=== PATIENT | female | born 1960 | race Caucasian/White ===

== ENCOUNTER 2019-07-14 11:27 | Inpatient (IN) ==
[2019-07-10 11:25] LABS: Appearance,Urine CLEAR; Bacteria,Urine 0 /hpf (0); Bilirubin,Urine NEG (NEG); Color,Urine YELLOW; Culture Indicated,Urine NO; Glucose,Urine (UA) NEGATIVE (NEG); Ketones,Urine NEG (NEG); Leukocyte Esterase,Urine NEG /uL (NEG); Mucus,Urine FEW /hpf (0); Nitrate,Urine NEG (NEG); Protein,Urine 30 mg/dL (NEG); Urine Blood 0.03 mg/dL (<0.03); Urine RBC 13 /hpf (0-1); Urine Squamous Epithelial Cell 1 /hpf (0-4); Urine WBC < 1 /hpf (0-4); Urobilinogen,Urine NEG (NEG)
[2019-07-10 12:58] LABS: Basophils # (Auto) 0.1 K/mcL (0.0-0.3); Basophils % (Auto) 0.6 % (0.0-2.0); Eosinophils # (Auto) 0.2 K/mcL (0.0-0.7); Eosinophils % (Auto) 2.2 % (0.0-7.0); Granulocytes % (Auto) 56.9 % (38.0-78.0); Hemoglobin 13.1 g/dL (12.0-15.0); Lymphocytes # (Auto) 3.4 K/mcL (1.5-4.8); Lymphocytes % (Auto) 33.1 % (15.5-49.0); Mean Corpuscular HGB Conc 33.7 g/dL (31.0-36.0); Monocytes # (Auto) 0.7 K/mcL (0.1-0.9); Monocytes % (Auto) 7.2 % (1.0-12.0); Platelet Count 314 K/mcL (140-440); RBC 4.43 M/mcL (4.00-5.20); Red Cell Distribution Width 16.4 % (11.5-14.5); WBC 10.4 K/mcL (4.5-11.0)
[2019-07-10 13:02] LABS: Blood Urea Nitrogen 11 mg/dl (6-20); Calcium 9.5 mg/dl (8.6-10.4); Carbon Dioxide 29 mmol/L (22-30); Chloride 100 mmol/L (96-108); Glomerular Filtration Rate 70; Glucose 121 mg/dL (70-105)
[~2019-07-14 11:27] MED LIST: 0.9 % SODIUM CHLORIDE 9 ML, KETOROLAC 30 MG, ROPIVACAINE HCL/PF 49.5 ML, EPINEPHrine 0.... IJ SCH; ACETAMINOPHEN 500 MG TABLET PO SCH; CELECOXIB 200 MG CAPSULE PO SCH; PREGABALIN 75 MG CAPSULE PO SCH; SCOPOLAMINE 1 PATCH PATCH TOPICAL ONE; ceFAZolin 2 GM in DEXTROSE 5% IN WATER 50 ML IV SCH; oxyCODONE 10 MG TAB.ER.12H PO SCH
[2019-07-14] MEDS ORDERED: SCOPOLAMINE 1 PATCH PATCH TOPICAL PRN (13:00)
[2019-07-14] MEDS ORDERED: IPRATROPIUM/ALBUTEROL 3 ML AMPUL.NEB NEB PRN ×2 (13:00→15:01)
[2019-07-14] MEDS ORDERED: GENTAMICIN SULFATE 800 MG/20 ML VIAL IR ONE (13:45)
[2019-07-14] MEDS ORDERED: ROPIVACAINE HCL/PF 20 ML VIAL IJ ONE (14:10)
[2019-07-14] MEDS ORDERED: ONDANSETRON 4 MG/2 ML VIAL IV ONE (14:10)
[2019-07-14] MEDS ORDERED: GLYCOPYRROLATE 0.2 MG/ML VIAL IV ONE (14:10)
[2019-07-14] MEDS ORDERED: DEXAMETHASONE 10 MG/ML VIAL IV ONE (14:10)
[2019-07-14] MEDS ORDERED: PROPOFOL 200 MG/20 ML VIAL IV ONE (14:10)
[2019-07-14] MEDS ORDERED: TRANEXAMIC ACID 1,000 MG/10 ML VIAL IV ONE ×2 (14:10→15:34)
[2019-07-14] MEDS ORDERED: fentaNYL 100 MCG/2 ML VIAL IV ONE (14:10)
[2019-07-14] MEDS ORDERED: LIDOCAINE HCL/PF 100 MG/5 ML SYRINGE IV ONE (14:10)
[2019-07-14] MEDS ORDERED: MIDAZOLAM 2 MG/2 ML VIAL IV ONE (14:10)
[2019-07-14] MEDS ORDERED: ePHEDrine 50 MG/ML AMPUL IV PRN (15:01)
[2019-07-14] MEDS ORDERED: METOPROLOL TARTRATE 5 MG/5 ML VIAL IV PRN (15:01)
[2019-07-14] MEDS ORDERED: METHOCARBAMOL 1,000 MG/10 ML VIAL IV PRN (15:01)
[2019-07-14] MEDS ORDERED: ONDANSETRON 4 MG/2 ML VIAL IV PRN (15:01)
[2019-07-14] MEDS ORDERED: diphenhydrAMINE 50 MG/ML VIAL IV PRN (15:01)
[2019-07-14] MEDS ORDERED: ATROPINE SULFATE 0.4 MG/ML VIAL IV PRN (15:01)
[2019-07-14] MEDS ORDERED: fentaNYL 100 MCG/2 ML VIAL IV PRN (15:01)
[2019-07-14] MEDS ORDERED: PROMETHAZINE 25 MG/ML VIAL IV PRN (15:01)
[2019-07-14] MEDS ORDERED: FLUMAZENIL 0.1 MG/ML ML IV PRN (15:01)
[2019-07-14] MEDS ORDERED: NALOXONE HCL 0.4 MG/ML VIAL IV PRN (15:01)
[2019-07-14] MEDS ORDERED: LACTATED RINGERS 1,000 ML IV SCH (15:15)
[2019-07-14] MEDS ORDERED: BISACODYL 10 MG SUPP.RECT PR PRN (15:34)
[2019-07-14] MEDS ORDERED: HYDROcodone/APAP 10/325MG TABLET PO PRN (15:34)
[2019-07-14] MEDS ORDERED: FLEETS ADULT ENEMA PR PRN (15:34)
[2019-07-14] MEDS ORDERED: ACETAMINOPHEN 325 MG TABLET PO PRN (15:34)
[2019-07-14] MEDS ORDERED: TEMAZEPAM 15 MG CAPSULE PO PRN (15:34)
[2019-07-14] MEDS ORDERED: POLYETHYLENE GLYCOL 3350 17 GM PACKET PO PRN (15:34)
[2019-07-14] MEDS ORDERED: MAGNESIUM HYDROXIDE 30 ML ORAL.SUSP PO PRN (15:34)
[2019-07-14] MEDS ORDERED: HYDROmorphone 2 MG/ML VIAL IV PRN (15:34)
[2019-07-14] MEDS ORDERED: BENZOCAINE/MENTHOL 1 LOZENGE PO PRN (15:34)
--- NOTE | 2019-07-14 15:34 | Brief Operative Note ---
Date of procedure: 07/14/19 Pre-op diagnosis: Left knee djd severe Post-op diagnosis: same Procedure: Left knee tka Grafts/Implants: Yes Anesthesia: ADE Surgeon: Hayden Delacruz Convict Guard: Armin Mccord Estimated blood loss (cc): 100 Tourniquet Time (Minutes): 52 Specimens Removed/Pathology: none sent Condition: stable Disposition: PACU
--- NOTE | 2019-07-14 15:56 | Operative Note ---
DATE OF OPERATION: 07/14/2019 PREOPERATIVE DIAGNOSIS: A 58-year-old with left knee severe degenerative arthritis with flexion contracture. POSTOPERATIVE DIAGNOSIS: A 58-year-old with left knee severe degenerative arthritis with flexion contracture. PROCEDURE: SURGEON: Hayden Delacruz M.D. PACKING HOUSE LABORER: Armin Mccord PA-C. The PA's assistance was required for the safe and efficient completion of the entire case. This provider's expertise and technical skill were required throughout the case. The PA assisted with preoperative coordination, intraoperative retraction, wound closure, dressing and splint application, as well as postoperative documentation and care coordination. ANESTHESIA: General LMA anesthesia. COMPLICATIONS: None. DESCRIPTION OF PROCEDURE: The patient was brought to the operating room and put to sleep with general LMA anesthesia. Once asleep, the patient had the left knee sterilely prepped and draped. We had a timeout confirming the operative site. Preop antibiotics and tranexamic acid given. Midline incision made, midvastus approach performed. We exposed the joint showing severe arthritis throughout all three compartments with a flexion contracture of 24 degrees. With this, we then adjusted the implant to fit the patient and to correct for anatomy. All spurs were removed. We balanced the knee at 90 degrees, as well as at 15 degrees. We irrigated thoroughly and then removed the tibial cut. We made our femoral cuts and removed the bony fragments. We then removed spurs posteriorly. Because of the contracture, we released posterior cruciate ligament and then tapped into place the tibial baseplate. The femoral component was then placed and drilled. We then trialed the size 9. This was a little too loose. The size 10 was perfect with 1 degree of flexion contracture. We irrigated thoroughly and then prepared the patella, measuring 22 mm in the worn status, cut to 14 mm. We then cemented into place a 33 mm patellar button and then resurfaced. The implants were placed after using pulse lavage and the CarboJet to clean the bone. The penetration of the bone cement was excellent. Excess cement was removed. We placed a 10 mm deep dish poly liner. We irrigated thoroughly and kept the knee at 45 degrees until the cement was dry. We then closed the midvastus approach with #1 Stratafix x2. We closed the skin with Stratafix and adhesive closure. The patient tolerated this well without complication. ALEKSANDR:michelle Job ID: [id number] Doc ID: [id number] Hayden Delacruz MD
[2019-07-14] MEDS: MEPERIDINE 25 MG/ML SYRINGE IV PRN ×2 (16:20→16:27)
--- NOTE | 2019-07-14 16:37 | XRay Report ---
CLINICAL INFORMATION: post op COMPARISON: None. FINDINGS: Total hip prostheses anatomically aligned. No osseous abnormality. Soft tissue swelling as expected. IMPRESSION: Negative Interpreted and Authenticated by: Car Bruno 07/14/19
[2019-07-14] MEDS: 0.45 % SODIUM CHLORIDE 1,000 ML IV SCH (16:52)
[2019-07-14] MEDS: KETOROLAC 15 MG/ML VIAL IV SCH ×2 (17:37→23:21)
[2019-07-14] MEDS ORDERED: SENNOSIDES 1 TABLET PO SCH (21:00)
[2019-07-14] MEDS ORDERED: KETOROLAC TROMETHAMINE 3 ML DROPS OP SCH (21:00)
[2019-07-14] MEDS: cloNIDine HCL 0.1 MG TABLET PO SCH (21:02)
[2019-07-14] MEDS: DOCUSATE SODIUM 100 MG CAPSULE PO SCH (21:02)
[2019-07-14] MEDS: ASPIRIN 325 MG ENTERIC COATED TABLET PO SCH (21:02)
[2019-07-14] MEDS: ceFAZolin 1 GM VIAL IV SCH (21:51)
[2019-07-14] MEDS: 0.9 % SODIUM CHLORIDE 10 ML SYRINGE IV SCH (21:51)
[2019-07-14] MEDS: ONDANSETRON 4 MG/2 ML VIAL IV PRN (23:30)
[2019-07-15] MEDS: 0.45 % SODIUM CHLORIDE 1,000 ML IV SCH (02:54)
[2019-07-15] MEDS: ONDANSETRON 4 MG/2 ML VIAL IV PRN ×2 (03:21→08:06)
[2019-07-15] MEDS: ceFAZolin 1 GM VIAL IV SCH (05:58)
[2019-07-15] MEDS: 0.9 % SODIUM CHLORIDE 10 ML SYRINGE IV SCH (05:59)
[2019-07-15] MEDS: KETOROLAC 15 MG/ML VIAL IV SCH ×2 (05:59→12:19)
[2019-07-15] MEDS ORDERED: PANTOPRAZOLE 40 MG TABLET PO SCH (07:30)
--- NOTE | 2019-07-15 07:31 | Orthopedic Progress Note ---
Subjective Patient information: Note initiated : 07/15/19 at 7:30 am Service Date, if different from initiated Date: [] Patient: Luisana Chahal a 58 y/o F admitted on 07/14/19 for Left Total Knee Arthroplasty Rey. Chief Complaint: [Pt is stable this morning on post operative day 1 without any significant concerns or complaints. Patients vital signs have remained stable. Patients dressing is dry and is grossly intact from a neurov ascular and motor standpoint. Patients 10 point ROS is otherwise negative. ] Objective Vital signs: Vital Signs Temp Pulse Resp BP Pulse Ox 07/15/19 05:40 99 H 224/97 07/15/19 03:29 98.4 F 81 16 208/96 94 07/14/19 23:40 202/90 07/14/19 21:14 78 190/89 97 07/14/19 20:43 80 206/93 97 07/14/19 19:43 70 162/75 94 07/14/19 18:44 80 134/68 96 07/14/19 18:14 95 H 141/78 96 07/14/19 17:44 83 141/65 96 07/14/19 17:28 88 133/71 96 07/14/19 17:13 79 136/75 94 07/14/19 16:59 80 116/65 93 07/14/19 16:43 77 131/71 93 07/14/19 16:34 97.9 F 83 20 147/67 98 07/14/19 16:24 97.8 F 83 18 135/62 97 07/14/19 16:09 97.6 F 77 16 171/82 98 07/14/19 16:04 83 24 H 198/86 97 07/14/19 15:59 87 24 H 211/96 100 07/14/19 15:54 97.2 F 90 22 206/94 100 07/14/19 15:34 94 07/14/19 11:27 97.6 F 62 18 156/83 96 Intake and Output 07/14/19 07/15/19 07/15/19 21:59 05:59 13:59 Intake Total 1820 1000 Output Total 676 1890 275 Balance 1144 890 -275 Intake: IV 1000 Sodium Chloride 0.45% 1,000 ml 1000 @ 100 mls/hr IV .Q10H [facility] Rx#: [id number] Oral 120 IV - Manual Only 1700 Output: Void Amount 675 625 225 # of times incontinent of urine 1 Emesis 1265 50 Other: Meal Tuna sandwich Percent of Meal Consumed 50% Urine Appearance Clear Urine Color Dark Yellow Dark Yellow Bright Yellow Urine Odor Strong Weight 210 lb Intake & Output: Intake & Output 07/14/19 07/15/19 07/15/19 21:59 05:59 13:59 Intake Total 1820 1000 Output Total 676 1890 275 Balance 1144 -890 -275 Weight 210 lb Intake: IV 1000 Sodium Chloride 0.45% 1,000 ml 1000 @ 100 mls/hr IV .Q10H [facility] Rx#: [id number] Oral 120 IV - Manual Only 1700 Output: Void Amount 675 625 225 # of times incontinent of urine 1 Emesis 1265 50 Other: Meal Tuna sandwich Percent of Meal Consumed 50% Urine Appearance Clear Urine Color Dark Yellow Dark Yellow Bright Yellow Urine Odor Strong Incision: Yes healing Incision clean and dry: Yes Dressing: Yes clean Weight bearing status: full Neurological exam IM: Yes motor sensory intact, Yes neurovascular intact Extremities exam IM: Yes Foot pink and warm, Yes neurovascular intact - Labs CBC & BMP: 07/15/19 04:58 07/10/19 09:42 Labs: 07/15/19 07/10/19 04:58 09:43 Hgb 13.1 Hct 37.6 39.0 Assessment and Plan (1) Hx of total knee arthroplasty The patient has been educated regarding dressing care, Physical Therapy recommendations, home exercises, restrictions, and follow up appointments. The patient has had all necessary DME prescribed. The patient has remained relatively stable during their hospital course. Leave Dermabond patch intact until followup Status: Acute (2) Hx of total knee arthroplasty Status: Acute
--- NOTE | 2019-07-15 07:36 | Discharge Summary ---
Ortho Discharge - TKA - Patient Instructions Diet: Regular Diet Activity: activity as tolerated, weight bearing as tolerated Total Knee Protocol: For Total Knee: Start ROM ANKIT with stationary bike or rocking chair. Work on gaining full extension of knee. Posterior dislocation precautions provided. Hip abductor strengthening and gait training instructions provided. Apply Cryocuff as instructed. Dressing Care: May shower in 2 days - Problem Maintenance (1) Hx of total knee arthroplasty Status: Acute (2) Hx of total knee arthroplasty Status: Acute - Follow Up Plan Follow Up Appointments: Armin Mccord PA-C [Physician [employer] Heel Back Liner] - 07/29/19 10:00 am Disposition: Home, Self-Care Prognosis: Good Rehab Potential: Good I certify that the patient requires SNF services: No Overall status at discharge: patient is progressing back to baseline - Orders For Discharge Prescriptions: Aspirin [Ecotrin] 325 mg PO BID #28 tab.ec HYDROcodone/APAP 10/325MG [[place] 10-325Mg] 1 - 2 tab PO Q4H PRN #60 tab PRN Reason: Pain Additional Discharge Orders: Physical Therapy at Discharge - TKA Location: None Selected Physical Therapy at Discharge - TKA Location: None Selected Physical Therapy at Discharge - TKA Location: None Selected CPM Discharge Order Location: None Selected Toilet Riser Discharge Order Location: None Selected Toilet Riser Discharge Order Location: None Selected Toilet Riser Discharge Order Location: None Selected Walker Location: None Selected Walker Location: None Selected Walker Location: None Selected
[2019-07-15] MEDS: cloNIDine HCL 0.1 MG TABLET PO SCH (07:44)
[2019-07-15] MEDS ORDERED: PROMETHAZINE 25 MG/ML VIAL IV PRN (08:09)
[2019-07-15] MEDS ORDERED: LOSARTAN 25 MG TABLET PO SCH (09:00)
[2019-07-15] MEDS ORDERED: MAGNESIUM OXIDE 400 MG TABLET PO SCH (09:00)
[2019-07-15] MEDS ORDERED: CITALOPRAM 20 MG TABLET PO SCH (09:00)
[2019-07-15] MEDS: ASPIRIN 325 MG ENTERIC COATED TABLET PO SCH (12:18)
[2019-07-15] MEDS: DOCUSATE SODIUM 100 MG CAPSULE PO SCH (12:19)
== END 2019-07-15 14:10 | disposition home or self-care (01) | DRG 470 ==
LOC: MEDSUR 11:27
PROVIDERS: ADMIT Orthopaedic Surgery; ATTEND Orthopaedic Surgery

== ENCOUNTER 2019-11-17 06:18 | Inpatient (IN) ==
[2019-11-11 13:40] LABS: Appearance,Urine CLEAR; Bacteria,Urine 0 /hpf (0); Bilirubin,Urine NEG (NEG); Color,Urine YELLOW; Glucose,Urine (UA) NEGATIVE (NEG); Ketones,Urine NEG (NEG); Leukocyte Esterase,Urine 75 /uL (NEG); Mucus,Urine FEW /hpf (0); Nitrate,Urine NEG (NEG); Protein,Urine NEG (NEG); Specific Gravity,Urine 1.018 (1.000-1.035); Urine Blood 0.2 mg/dL (<0.03); Urine RBC 12 /hpf (0-1); Urine Squamous Epithelial Cell 10 /hpf (0-4); Urine Transitional Epi Cells < 1 /hpf (0-2); Urine WBC 7 /hpf (0-4); Urobilinogen,Urine NEG (NEG)
[2019-11-11 15:18] LABS: Basophils # (Auto) 0.08 K/mcL (0.00-0.30); Basophils % (Auto) 0.7 % (0.0-2.0); Eosinophils # (Auto) 0.23 K/mcL (0.00-0.70); Eosinophils % (Auto) 2.1 % (0.0-7.0); Granulocytes % (Auto) 55.9 % (38.0-78.0); Hematocrit 39.2 % (34.1-44.9); Hemoglobin 13.3 g/dL (11.2-15.7); Lymphocytes # (Auto) 3.65 K/mcL (1.50-4.80); Lymphocytes % (Auto) 34.1 % (15.5-49.0); Mean Cell Volume 87.5 fL (80.0-100.0); Mean Corpuscular HGB Conc 33.9 g/dL (31.0-36.0); Mean Platelet Volume 9.8 fL (7.4-10.4); Monocytes # (Auto) 0.77 K/mcL (0.10-0.90); Monocytes % (Auto) 7.2 % (1.0-12.0); Platelet Count 330 K/mcL (140-440); RBC 4.48 M/mcL (3.59-5.38); Red Cell Distribution Width 14.4 % (11.5-14.5); WBC 10.7 K/mcL (4.50-11.00)
[2019-11-11 15:22] LABS: Blood Urea Nitrogen 14 mg/dl (6-20); Calcium 9.3 mg/dl (8.6-10.4); Carbon Dioxide 23 mmol/L (22-30); Chloride 102 mmol/L (96-108); Glomerular Filtration Rate 95; Glucose 118 mg/dL (70-105)
[~2019-11-17 06:18] MED LIST changes: -SCOPOLAMINE 1 PATCH PATCH TOPICAL ONE
[2019-11-17] MEDS ORDERED: SCOPOLAMINE 1 PATCH PATCH TOPICAL PRN (07:00)
[2019-11-17] MEDS ORDERED: IPRATROPIUM/ALBUTEROL 3 ML AMPUL.NEB NEB PRN ×2 (07:00→10:07)
[2019-11-17 07:57] LABS: Appearance,Urine CLEAR; Bacteria,Urine 0 /hpf (0); Bilirubin,Urine NEG (NEG); Color,Urine YELLOW; Culture Indicated,Urine NO; Glucose,Urine (UA) NEGATIVE (NEG); Ketones,Urine NEG (NEG); Leukocyte Esterase,Urine NEG /uL (NEG); Mucus,Urine MANY /hpf (0); Nitrate,Urine NEG (NEG); Protein,Urine 30 mg/dL (NEG); Specific Gravity,Urine 1.021 (1.000-1.035); Urine Blood 0.2 mg/dL (<0.03); Urine Granular Cast 3 /lpf (0); Urine Hyaline Cast 91 /lpf (0-2); Urine RBC 18 /hpf (0-1); Urine Squamous Epithelial Cell < 1 /hpf (0-4); Urine Transitional Epi Cells < 1 /hpf (0-2); Urine WBC 2 /hpf (0-4); Urobilinogen,Urine NEG (NEG)
[2019-11-17] MEDS ORDERED: LIDOCAINE HCL/PF 100 MG/5 ML SYRINGE IV ONE (09:05)
[2019-11-17] MEDS ORDERED: TRANEXAMIC ACID 1,000 MG/10 ML VIAL IV ONE ×2 (09:05→10:30)
[2019-11-17] MEDS ORDERED: ROPIVACAINE HCL/PF 20 ML VIAL IJ ONE (09:05)
[2019-11-17] MEDS ORDERED: ONDANSETRON 4 MG/2 ML VIAL IV ONE (09:05)
[2019-11-17] MEDS ORDERED: ePHEDrine 50 MG/ML AMPUL IV ONE (09:05)
[2019-11-17] MEDS ORDERED: DEXAMETHASONE 10 MG/ML VIAL IV ONE (09:05)
[2019-11-17] MEDS ORDERED: KETAMINE 100 MG/ML ML IV ONE (09:05)
[2019-11-17] MEDS ORDERED: PROPOFOL 200 MG/20 ML VIAL IV ONE (09:05)
[2019-11-17] MEDS ORDERED: GENTAMICIN SULFATE 800 MG/20 ML VIAL IR ONE (09:26)
[2019-11-17] MEDS ORDERED: MEPERIDINE 25 MG/ML SYRINGE IV PRN (10:07)
[2019-11-17] MEDS ORDERED: PROMETHAZINE 25 MG/ML VIAL IV PRN (10:07)
[2019-11-17] MEDS ORDERED: ONDANSETRON 4 MG/2 ML VIAL IV PRN ×2 (10:07→10:30)
[2019-11-17] MEDS ORDERED: NALOXONE HCL 0.4 MG/ML VIAL IV PRN (10:07)
[2019-11-17] MEDS ORDERED: fentaNYL 100 MCG/2 ML VIAL IV PRN (10:07)
[2019-11-17] MEDS ORDERED: BENZOCAINE/MENTHOL 1 LOZENGE PO PRN ×2 (10:07→10:30)
[2019-11-17] MEDS ORDERED: LACTATED RINGERS 250 ML IV PRN (10:07)
[2019-11-17] MEDS ORDERED: diphenhydrAMINE 50 MG/ML VIAL IV PRN (10:07)
[2019-11-17] MEDS ORDERED: LACTATED RINGERS 1,000 ML IV SCH (10:15)
[2019-11-17] MEDS ORDERED: FLEETS ADULT ENEMA PR PRN (10:30)
[2019-11-17] MEDS ORDERED: ACETAMINOPHEN 325 MG TABLET PO PRN (10:30)
[2019-11-17] MEDS ORDERED: TEMAZEPAM 15 MG CAPSULE PO PRN (10:30)
[2019-11-17] MEDS ORDERED: HYDROmorphone 2 MG/ML VIAL IV PRN (10:30)
[2019-11-17] MEDS ORDERED: BISACODYL 10 MG SUPP.RECT PR PRN (10:30)
[2019-11-17] MEDS ORDERED: POLYETHYLENE GLYCOL 3350 17 GM PACKET PO PRN (10:30)
[2019-11-17] MEDS ORDERED: MAGNESIUM HYDROXIDE 30 ML ORAL.SUSP PO PRN (10:30)
--- NOTE | 2019-11-17 10:39 | Brief Operative Note ---
Date of procedure: 11/17/19 Pre-op diagnosis: Right knee djd Post-op diagnosis: same Procedure: Right knee total knee Grafts/Implants: Yes Anesthesia: ADE Surgeon: Hayden Delacruz Chemical Librarian: Armin Mccord Estimated blood loss (cc): 50 Tourniquet Time (Minutes): 46 Specimens Removed/Pathology: none sent Condition: stable Disposition: PACU
--- NOTE | 2019-11-17 10:58 | Operative Note ---
DATE OF OPERATION: 11/17/2019 PREOPERATIVE DIAGNOSIS: Right knee degenerative arthritis, severe. POSTOPERATIVE DIAGNOSES: 1. Right knee degenerative arthritis, severe. 2. Left knee contracture and adhesions. PROCEDURE: 1. Right total knee arthroplasty. 2. Manipulation of the left leg under anesthesia. SURGEON: Hayden Delacruz M.D. FINISHING DEPARTMENT SUPERVISOR: Armin Mccord PA-C. The PA's assistance was required for the safe and efficient completion of the entire case. This provider's expertise and technical skill were required throughout the case. The PA assisted with preoperative coordination, intraoperative retraction, wound closure, dressing and splint application, as well as postoperative documentation and care coordination. ANESTHESIA: General LMA anesthesia. COMPLICATIONS: None. DESCRIPTION OF PROCEDURE: The patient was brought to the operating room and put to sleep with general LMA anesthesia. Once asleep, the patient had the right leg sterilely prepped and draped in the usual sterile fashion. The left leg had been manipulated under anesthesia where it had about a 10 degree flexion contracture, as well as only 90 degrees of bend. This was taken through the full range of motion, achieving full motion. After the right leg was sterilely prepped and draped, a timeout was performed. We confirmed this as the operative site by initials, consent form, and x-rays. Preop antibiotics and tranexamic acid were given. Ioban was placed over the skin and the leg was exsanguinated to 250 pounds of pressure. A midline incision was made. A midvastus approach performed. We then registered the pins and arrays on the leg and registered the medial and lateral malleoli. We registered center of hip rotation and thirty points on the femur and the tibia. It was then balanced at 90 and 15 degrees. The implant was adjusted to allow for perfect tracking of her patella and to match her anatomy. Once this was done, we brought the robot in. The bony cuts were made. The trials were placed, a size 4 tibial baseplate, size 4 femur. Spurs were removed from posteriorly, and the capsule was injected with a post-inject formula. All the spurs were removed to allow for tracking. A 9 mm poly insert was placed. We achieved 0 degrees extension and perfect tracking of the patella. We irrigated thoroughly. We then cemented into place the above-mentioned sizes. Once these were cemented into place, excess cement was removed, a 9 mm poly and a 33 mm patellar button. A small chamfer cut was made laterally, and we closed the midvastus approach with #1 Stratafix x2. We closed the skin with Stratafix and adhesive closure. The patient tolerated this well without complication. Sterile bandage was applied. RBH:michelle Job ID: [id number] Doc ID: [id number] Hayden Delacruz MD
[2019-11-17] MEDS ORDERED: OMEPRAZOLE 20 MG CAPSULE PO SCH (11:30)
--- NOTE | 2019-11-17 11:45 | XRay Report ---
CLINICAL INFORMATION: Post-Op Total Knee COMPARISON: None. FINDINGS: Only is anatomically aligned. No osseous abnormality. Periarticular soft tissue swelling noted. IMPRESSION: Negative Interpreted and Authenticated by: Car Bruno 11/17/19
[2019-11-17] MEDS: KETOROLAC 15 MG/ML VIAL IV SCH ×2 (11:56→17:59)
[2019-11-17] MEDS: LACTATED RINGERS 1,000 ML IV SCH ×2 (11:57→20:50)
--- NOTE | 2019-11-17 12:11 | Discharge Summary ---
Ortho Discharge - TKA - Patient Instructions Diet: Regular Diet Activity: activity as tolerated, weight bearing as tolerated Total Knee Protocol: For Total Knee: Start ROM ANKIT with stationary bike or rocking chair. Work on gaining full extension of knee. Posterior dislocation precautions provided. Hip abductor strengthening and gait training instructions provided. Apply Cryocuff as instructed. Dressing Care: May shower in 2 days - Follow Up Plan Follow Up Appointments: Armin Mccord PA-C [Physician Faro Dealer] - 12/04/19 10:00 am Disposition: Home, Self-Care Prognosis: Good Rehab Potential: Good I certify that the patient requires SNF services: No Overall status at discharge: patient is progressing back to baseline - Orders For Discharge Prescriptions: Docusate Sodium [Colace] 100 mg PO BID #60 cap Transmission Status: Pending to [facility] Aspirin [Ecotrin] 325 mg PO BID #60 tab.ec Transmission Status: Pending to [facility] oxyCODONE/APAP [Percocet 5-325 mg] 1 - 2 tab PO Q4HP PRN #75 tab PRN Reason: Pain Level 3-6 Prescription Printed
[2019-11-17] MEDS: 0.9 % SODIUM CHLORIDE 10 ML SYRINGE IV SCH (12:52)
[2019-11-17] MEDS: oxyCODONE/APAP 5/325MG TABLET PO PRN ×2 (14:23→21:15)
[2019-11-17] MEDS: ceFAZolin 1 GM VIAL IV SCH (16:34)
[2019-11-17] MEDS: OMEPRAZOLE 20 MG CAPSULE PO SCH (16:34)
[2019-11-17] MEDS: FERROUS SULFATE 325 MG TABLET PO SCH (16:35)
[2019-11-17] MEDS: cloNIDine HCL 0.1 MG TABLET PO SCH (20:56)
[2019-11-17] MEDS: ASPIRIN 325 MG ENTERIC COATED TABLET PO SCH (20:56)
[2019-11-17] MEDS: DOCUSATE SODIUM 100 MG CAPSULE PO SCH (20:56)
[2019-11-17] MEDS ORDERED: SENNOSIDES 1 TABLET PO SCH (21:00)
[2019-11-17] MEDS ORDERED: CITALOPRAM 20 MG TABLET PO SCH (21:00)
[2019-11-18] MEDS: KETOROLAC 15 MG/ML VIAL IV SCH ×2 (00:53→06:39)
[2019-11-18] MEDS: ceFAZolin 1 GM VIAL IV SCH (00:53)
[2019-11-18] MEDS: 0.9 % SODIUM CHLORIDE 10 ML SYRINGE IV SCH ×2 (00:53→06:39)
[2019-11-18] MEDS: oxyCODONE/APAP 5/325MG TABLET PO PRN (03:17)
[2019-11-18] MEDS: LACTATED RINGERS 1,000 ML IV SCH (06:43)
[2019-11-18] MEDS: OMEPRAZOLE 20 MG CAPSULE PO SCH (06:55)
[2019-11-18] MEDS: FERROUS SULFATE 325 MG TABLET PO SCH (08:04)
[2019-11-18] MEDS: DOCUSATE SODIUM 100 MG CAPSULE PO SCH (08:48)
[2019-11-18] MEDS: ASPIRIN 325 MG ENTERIC COATED TABLET PO SCH (08:48)
[2019-11-18] MEDS: cloNIDine HCL 0.1 MG TABLET PO SCH (08:48)
[2019-11-18] MEDS ORDERED: LOSARTAN 25 MG TABLET PO SCH (09:00)
== END 2019-11-18 11:55 | disposition home or self-care (01) | DRG 470 ==
LOC: MEDSUR 06:18
PROVIDERS: ADMIT Orthopaedic Surgery; ATTEND Orthopaedic Surgery